=== PATIENT | female | born 1955 | race Caucasian/White ===

== ENCOUNTER 2019-07-02 12:04 | Emergency (ER) | payer MEDICAID, MEDICARE ==
[~2019-07-02 12:04] MED LIST: ALPR0.5T7 PO
--- NOTE | 2019-07-02 14:15 | NUR ---
Pt to room from lobby.
--- NOTE | 2019-07-02 14:30 | NUR ---
THIS IS A 64 YO FEMALE COMING IN FOR LEFT SIDED BACK/SHOULDER BLADE PAIN RADIATING DOWN LEFT ARM CAUSING NUMBNESS X3 WEEKS, WITH PAIN GETTING WORSE. PATIENT WAS SEEN AT URGENT CARE AND WAS SENT HOME WITH METHYLPREDNISONE AND FLEXARIL, PATIENT TAKING MEDS WITH NO RELIEF. PATIENT STATES "IT FEELS LIKE AN ICE PICK IN MY BACK AND THE NUMBNESS GOES TO MY PINKY AND RING FINGERS". PATIENT STATES THESE SYMPTOMS STARTED 3 WEEKS AGO AFTER PAINTING FOR A FEW DAYS. DENIES ANY TRAUMA, DENIES SOB/CP, DENIES QUINTERO OR DIZZINESS AT THIS TIME. SPO2 AND BP MONITORING IN PLACE, CALL LIGHT IN REACH, DENIES NEEDS AT THIS TIME
[2019-07-02] MEDS ORDERED: KETOROLAC 30 MG/1 ML ONE (14:58)
[2019-07-02] MEDS ORDERED: KETOROLAC 30 MG/1 ML IM ONE (15:00)
--- NOTE | 2019-07-02 15:03 | NUR ---
DISCUSSED WITH MD GIVING TORADOL WHILE PATIENT TAKING PERDNISONE. MD LONA STATES SAFE TO ADMIN. PATIENT REFUSING TORADOL SHOT AT THIS TIME.
--- NOTE | 2019-07-02 15:10 | NUR ---
PT TO IMAGING
--- NOTE | 2019-07-02 15:20 | NUR ---
PATIENT BACK FROM IMAGING
--- NOTE | 2019-07-02 16:12 | NUR ---
Patient/Caregiver given discharge instructions and they have confirmed that they understand the instructions. Patient ambulatory with steady gait.
[2019-07-02 16:13] VITALS: BP 167/44
[2019-07-02] MEDS ORDERED: METH4TAB6 PO (16:13)
== END 2019-07-02 16:18 | disposition home or self-care (01) ==
LOC: ED 16:00
DX: M54.12 Radiculopathy, cervical region (principal); M54.6 Pain in thoracic spine
CPT/HCPCS: 72050; 93005; 99283